=== PATIENT | male | born 1980 | race Hispanic/Latino ===

== ENCOUNTER 2021-10-03 07:11 | Day surgery (SDC) | payer OTHER ==
[2021-10-03] MEDS ORDERED: ASPIRIN EC 325 MG TAB PO ONE (08:28)
[2021-10-03] MEDS: SODIUM CHLORIDE 0.9% 500 ML 500 ML IV SCH ×2 (09:04→10:10)
[2021-10-03 09:22] LABS: Basophils # (Auto) 0.1 K/mm3 (0.0-0.1); Basophils % (Auto) 1.3 % (0.0-1.8); Eosinophils # (Auto) 0.1 K/mm3 (0.0-0.4); Eosinophils % (Auto) 1.6 % (0.0-4.3); Hematocrit 44.7 % (35.5-45.6); Hemoglobin 14.9 gm/dl (11.8-15.2); Lymphocytes # (Auto) 2.4 K/mm3 (1.2-5.4); Lymphocytes % (Auto) 34.8 % (13.4-35.0); Mean Corpuscular HGB Conc 33 % (32-34); Mean Corpuscular Volume 90 fl (84-94); Monocytes # (Auto) 0.6 K/mm3 (0.0-0.8); Monocytes % (Auto) 8.8 % (0.0-7.3); Platelet Count 231 K/mm3 (140-440); Red Blood Count 4.96 M/mm3 (3.65-5.03); Red Cell Distribution Width 12.8 % (13.2-15.2)
[2021-10-03 09:34] LABS: BUN/Creatinine Ratio 19; Blood Urea Nitrogen 15 mg/dL (9-20); Calcium 8.5 mg/dL (8.4-10.2); Hemolysis Index 64
[2021-10-03 09:50] LABS: INR 0.92 (0.87-1.13)
--- NOTE | 2021-10-03 10:01 | Electrocardiograph Report ---
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
[2021-10-03] MEDS: LIDOCAINE (2%) 20 MG/1 ML VIAL 20 ML MDV INFILTRATI ONE ×2 (10:08→10:33)
[2021-10-03] MEDS: MIDAZOLAM 2 MG/2 ML INJ ONE ×3 (10:08→10:39)
[2021-10-03] MEDS: fentaNYL 100 MCG/2 ML INJ ONE ×4 (10:08→10:40)
[2021-10-03] MEDS: HEPARIN 10,000 UNITS/10 ML VIAL ONE ×2 (10:09→10:35)
[2021-10-03] MEDS: VERAPAMIL 5 MG/2 ML INJ ONE ×2 (10:10→10:35)
[2021-10-03] MEDS: NITROGLYCERIN SYRINGE 3 ML ONE ×2 (10:11→10:35)
[2021-10-03] MEDS: HEPARIN/NS 5000 UNIT/500ML 1,000 ML IR ONE ×2 (10:11→10:36)
--- NOTE | 2021-10-03 11:12 | Cardiac Catherization Report ---
DATE OF PROCEDURE: 10/03/2021 CARDIAC CATHETERIZATION REFERRING PHYSICIAN: Dr. Donny Chandra. INDICATIONS FOR PROCEDURE: The patient is a pleasant 41-year-old gentleman with a strong family history of premature coronary artery disease, positive calcium score, recurrent chest pain, referred for left heart catheterization. Risks, benefits, potential alternatives explained at length prior to obtaining informed consent. PROCEDURE IN DETAIL: The patient was brought to slab tripper in a postabsorptive state, prepped and draped in sterile fashion. Braxton's test in right hand is normal. A 2 mL of 2% lidocaine used to anesthetize the right wrist. A standard 6-[place] hydrophilic sheath was used to cannulate the right radial artery via modified Seldinger technique. All exchanges performed to exchange a J-tip guidewire. JL3.5 catheter was used to engage the left main. No dampening or ventricularization. Cineangiography performed in all projections. JR4 catheter was used to cross the aortic valve under fluoroscopic guidance. Left ventriculography was performed in 30 JETER and 30 FRISIAN projections via hand injections, catheter flushed. Manual pullback performed with continuous pressure monitoring. Catheter used to engage the right coronary. No dampening or ventricularization. Cineangiography performed in all projections. Next, catheter removed from the body of wire, sheath removed. Manual pressure used to achieve hemostasis. I directly supervised the administration of moderate sedation with fentanyl and Versed from 10:30 a.m. to 10:55 a.m. No immediate complications. DATA: Aortic pressure is 120/80, LV pressure is 120, LVEDP of 16 mmHg. Left ventriculography reveals normal systolic performance, estimated ejection fraction 55-60%. No evidence of aortic stenosis. The patient remained in sinus bradycardia, sinus rhythm throughout the procedure. No dysrhythmias. CORONARY ANATOMY: This is a right dominant system. Left main without significant disease, bifurcates into left anterior descending, left circumflex. Left main without significant disease. LAD is a moderate-sized vessel, courses anterior interventricular groove, wraps around the apex. No significant disease in the LAD or diagonal system. Left circumflex is a moderate-sized vessel, courses AV groove. No significant disease. Right coronary is a moderate-sized vessel, courses the AV groove, distally bifurcates in the posterior descending and posterolateral branches. Mild sluggish flow is noted, but no significant angiographic disease identified. CONCLUSIONS: 1. No angiographic evidence of significant epicardial coronary artery disease in this right dominant system. Mild sluggish flow may be indicative of endothelial dysfunction. 2. Normal left ventricular systolic performance, estimated ejection fraction 55-60%. 3. Normal LVEDP. 4. No evidence of aortic stenosis. The patient is clinically stable. Continue Crestor, add baby aspirin, consider Ranexa therapy. Questionable microvascular angina versus noncardiac chest pain. Results of procedure explained to the patient. Follow up with Dr. Chandra in the office. Standard radial care with aggressive primary and secondary prevention measures. TID: [id number] RECEIPT: [id number] LEO/BARBARA
--- NOTE | 2021-10-03 11:41 | Short Stay Summary ---
Short Stay Documentation Date of service: 10/03/21 - History H&P: obtained from office - Allergies and Medications Current Medications: Allergies No Known Allergies Allergy (Unverified 10/03/21 08:25) Home Medications Medication Instructions Recorded Confirmed Last Taken Type Omeprazole 40 mg PO DAILY 10/03/21 10/03/21 10/02/21 History 40 mg Pregabalin [Lyrica] 50 mg PO TID 10/03/21 10/03/21 10/02/21 History 50 mg Rosuvastatin Calcium [Crestor] 10 mg PO DAILY 10/03/21 10/03/21 10/01/21 History 10 mg rOPINIRole [Requip] 1 mg PO DAILY 10/03/21 10/03/21 10/02/21 History 1 mg Active Medications Sodium Chloride (Nacl 0.9% 500 Ml) 500 mls @ 50 mls/hr IV DIRECT LENNY Stop: 10/03/21 18:59 Last Admin: 10/03/21 10:10 Dose: 50 mls/hr - Physical exam Integumentary: other (Dressing clean dry and intact. No signs of bleeding or hematoma) - Brief post op/procedure progress note Date of procedure: 10/03/21 Pre-op diagnosis: Chest pain Post-op diagnosis: other (Normal coronary) Estimated blood loss: minimal - Hospital course Hospital course: Patient presents today for cardiac cath due to chest pain. Patient tolerated procedure well with no complications. Patient found to have normal coronaries. Patient to be discharged home with Ranexa 500 mg p.o. twice daily - Disposition Condition at discharge: Good Disposition: 01 HOME / SELF CARE / HOMELESS - Discharge Diagnoses (1) HTN (hypertension) Status: Acute (2) Former smoker Status: Acute Short Stay Discharge Plan Activity: advance as tolerated Diet: low fat, low cholesterol, low salt Wound: keep clean and dry, per your surgeon's advice Follow up with: CLAUDIA TERRY MD [Staff Physician] - 7 Days Forms: CardCath PCI D/C Instructions
[2021-10-03 13:37] VITALS: BP 128/75
== END 2021-10-03 14:03 | disposition home or self-care (01) ==
LOC: CATHLABREC 07:11
PROVIDERS: ATTEND Internal Medicine
DX: R07.89 Other chest pain (principal); R94.39 Abnormal result of other cardiovascular function study; R07.2 Precordial pain; I10 Essential (primary) hypertension; E78.00 Pure hypercholesterolemia, unspecified; K21.9 Gastro-esophageal reflux disease without esophagitis; F17.210 Nicotine dependence, cigarettes, uncomplicated; Z79.899 Other long term (current) drug therapy; Z87.442 Personal history of urinary calculi; Z98.890 Other specified postprocedural states
CPT/HCPCS: 36415; 80048; 85025; 85610; 93005; 93010; 93458; 99156; 99157; C1894; J1644; J1815; J2250; J3010; J3490; J7040; Q9967